=== PATIENT | female | born 1985 | race Caucasian/White ===

== ENCOUNTER 2019-12-06 05:22 | Inpatient (IN) ==
[2019-12-02 21:16] LABS: SARS CoV2 RNA (COVID-19) NOT DETECTED (NOT DETECTED)
--- NOTE | 2019-12-05 14:23 | Communication Note ---
Pt scheduled for on 12/06/19. Pt was tested at 38 weeks for Covid on 11/28/19 and was negative. Pt then attended a wedding on 11/30/19. Pt was seated next to a person with mild upper respiratory issues that did test positive for Covid on 12/02/19. Since patient is only 5-6 days post Covid exposure- viral load may not be high enough to detect with Covid testing. Therefore, it was decided that patient will be treated as a PUI during procedure and hospital admission. This decision was decided by Dr. Ross, the OB office and Infection Control. The [facility] was also involved in decision making. will take place in the main OR. No Cepheid or other Covid testing will be done preoperatively due to exposure being 5-6 days ago. Pt is currently under 14 day quarantine secondary to Covid exposure. She will be placed in negative pressure room during admission. The OB office has been informed of plan both for the and during hospital admission and is to inform/educate the patient of plan during hospital stay in which again she is considered a PUI patient. Dr. Jessica (anesthesiologist) for is aware of plan. Full PPE will need to be worn during procedure by all personnel.
--- NOTE | 2019-12-05 17:33 | History and Physical Report ---
DATE OF ADMISSION: 12/06/2019 PREOPERATIVE DIAGNOSES: 1. Intrauterine at 39 and 0/7 weeks. 2. Low-lying placenta within 1.8-1.9 cm of the cervical os. 3. Person under investigation for COVID exposure. HISTORY OF PRESENT ILLNESS: Billie is a 34-year-old white female, 1, para 0 who presents to labor and delivery for primary section for a low lying placenta. At her 20-week ultrasound, the patient was noted to have a posterior placenta 1.5 cm from the cervical os. At 32 weeks, the placenta was still noted to be approximately 1.5 cm from the os with increasing vascularity and at her 36-week scan, the placenta was 1.8-1.9 cm from the internal os. It was recommended that she have a primary section. The patient's up until the last week of her was uncomplicated. She did fail her 28-week glucose tolerance test, but passed her 2-hour glucose tolerance test. She is GBS negative. The patient had a negative COVID screen on 11/28/2019. She and her then attended an outdoor wedding where folks were not masked and the person that was sitting one person away from her at her dinner table was found to be COVID positive. The patient called the PAT and after many long conversations and consultation with the Department of Health, it was decided that she would be treated as a person under investigation for COVID regardless of test results, and her who was exposed as well would not be allowed to attend the patient in the hospital. The patient is allowed to have a support person with her who will be her mother who the patient has not seen since before 11/27 and does not look in her household. PAST OBSTETRIC AND GYNECOLOGIC HISTORY: As noted above. The patient has no history of sexually transmitted illnesses or abnormal Pap smears. ALLERGIES: No known drug allergies. MEDICATIONS: Include iron and vitamins. PAST MEDICAL HISTORY: The patient is healthy. Denies thyroid disease, asthma, heart disease, heart murmur, diabetes, kidney or liver problems. PAST SURGICAL HISTORY: Includes a laparoscopy with partial cystectomy of the right ovary. SOCIAL HISTORY: The patient denies tobacco, alcohol or drug use. Her spouse is Cain, but again, he will not be at the delivery. PHYSICAL EXAMINATION: GENERAL: This is a well-developed, well-nourished white female in no acute distress. Her weight is 144 pounds. VITAL SIGNS: Blood pressure 124/80. NECK: Supple without thyromegaly or lymphadenopathy. CHEST: Clear to auscultation bilaterally. CARDIOVASCULAR: Regular rate and rhythm. ABDOMEN: Soft, gravid and nontender. EXTREMITIES: Benign. LABORATORY DATA: Blood type O positive, antibody negative, rubella immune, RPR nonreactive, hepatitis B negative, HIV negative, chlamydia and gonorrhea negative, GBS negative. Declined CF, SMA and genetics. ASSESSMENT: Billie is a 34-year-old white female 1, para 0 with an intrauterine at 39 and 0/7 weeks and a low lying placenta within 1.8-1.9 cm from the cervical os posteriorly. We have recommended a delivery for this patient given the concern for bleeding with vaginal delivery. The patient is also a person who has been exposed to COVID and will be considered a person under investigation. The patient presents and the consent form is signed today. The risks of the surgery were reviewed including the risks of anesthesia, bleeding requiring transfusion, infection, poor wound healing, damage to surrounding structures including bowel, bladder, vessels, nerves and ureters with need for further surgery, hospitalization or intervention. The risk of any surgery including heart attack, blood clot, stroke or were discussed with the patient. Given this is a low lying placenta and the placenta is very vascular, we did discuss the potential increased risk for bleeding and need for transfusion. The patient is accepting of transfusion if indicated. The patient will be treated as a person under investigation for COVID. We will rapidly screen her on admission, but the result of that screen does not affect the decision of the hospital regarding this patient. She will be kept in negative pressure room with the baby, staffed per person under investigation, she will have video visiting. She will be allowed that visitor for the section, but then that visitor will have to go home. Questions were asked and answered to the best of my ability for the patient and the procedure is planned for the . addenedum for am 10/9--patient had a rapid COVID test this am which was positive. MICKY
[2019-12-06] MEDS ORDERED: LACTATED RINGER'S 1,000 ML IV SCH ×2 (05:45→10:00)
[2019-12-06] MEDS ORDERED: ceFAZolin 2000MG 2,000 MG/15 ML SYR IV STA (05:48)
[2019-12-06] MEDS ORDERED: CITRIC ACID/SODIUM CITRATE 15 ML UDC PO STA (05:48)
[2019-12-06 06:11] LABS: Basophils # (auto) 0.02 K/uL (0-0.2); Basophils % (auto) 0.3 %; Eosinophils # (auto) 0.01 K/uL (0-0.5); Eosinophils % (auto) 0.1 %; Hematocrit (blood only) 34.3 % (37-47); Hemoglobin 11.6 g/dL (12.0-16.0); Immature Granulocytes # (auto) 0.09 K/uL (0.00-0.02); Immature Granulocytes % (auto) 1.2 %; Lymphocytes # (auto) 2.12 K/uL (1.2-3.4); Lymphocytes % (auto) 28.5 %; Mean Corpuscular Volume 97.7 fL (80-100); Mean Platelet Volume 10.8 fL (7.4-10.4); Monocytes # (auto) 0.93 K/uL (0.11-0.59); Monocytes % (auto) 12.5 %; Neutrophils # (auto) 4.28 K/uL (1.4-6.5); Neutrophils % (auto) 57.4 %; Platelet Count 205 K/uL (130-400); RDW Coefficient of Variation 12.7 % (11.5-14.5); RDW Standard Deviation 44.9 fL (36.4-46.3); Red Blood Count 3.51 M/uL (4.2-5.4); White Blood Count 7.45 K/uL (4.8-10.8)
[2019-12-06 06:34] LABS: Mean Corpuscular Hgb Conc 33.8 g/dL (32-36)
--- NOTE | 2019-12-06 06:39 | Anesthesiology Consultation ---
Date of Service December 06, 2019 Assessment & Plan (1) Encounter for pre-operative examination: Chart Review Chart Review: Acceptable Risk for Surgery and Patient NOT seen in Pre Admission Testing Consults Requested none History Surgery Operation Date: 12/06/19 07:30 Proposed Procedures p Section in OR - Mary Ann Borjas MD, FACOG Height/Weight Height: 5 ft 4 in Weight: 65.317 kg Allergies Allergy/AdvReac Type Severity Reaction Status Date / Time No Known Allergies Allergy Verified 12/05/19 16:37 Medications Home Medications Medication Instructions Recorded Confirmed Last Taken prenat.vits,humera,qve-iqqa-girop 1 tab PO DAILY 07/01/19 12/05/19 Unknown ferrous sulfate [iron] 325 mg PO QAM 12/03/19 12/05/19 Unknown Active Medications Generic Name Dose Route Start Last Admin Trade Name Freq PRN Reason Stop Dose Admin Lactated Ringer's 1,000 mls @ 999 mls/hr 12/06/19 05:45 12/06/19 05:50 Lr IV 12/06/19 06:45 999 mls/hr .[id number] NANNETTE Administration NPO Date Last Intake of Fluids: 12/05/19 Time Last Intake of Fluids: 22:30 Date Last Intake of Solids: 12/05/19 Time Last Intake of Solids: 21:00 Past Medical History Medical History No known health problems Exercise / Class Metabolic Activity II 4-5 Yardwork/Stairs/Walk up hill Past Family History Family History Father Myocardial infarction Past Surgical History Surgical History H/O laparoscopy H/O partial cystectomy right ovary Past Anesthesia History No Hx of Anesthesia Complications and No Family Hx of Anesthesia Complications History of PONV No Hx of PONV and No Hx of Motion Sickness Social History Smoking Status: Never smoker Do You Dip or Chew Tobacco: No Hx Alcohol Use: No Hx Substance Use: No substance use type: does not use Physical Exam Vital Signs Last Vital Signs Temp 36.7 C 12/06/19 06:00 Testing Laboratory Results 12/06/19 05:51
[2019-12-06] MEDS ORDERED: MoRPHine SULFATE PF 1 MG/ML 10 ML AMP/VIAL INT SPINAL ONE (06:40)
[2019-12-06] MEDS ORDERED: MoRPHine SULFATE 2 MG/ML CARP IV PRN (06:40)
[2019-12-06] MEDS ORDERED: MEPERIDINE HCL 25 MG/ML CARP/VIAL IV PRN (06:40)
[2019-12-06] MEDS ORDERED: ePHEDrine sulfate 50 MG/ML AMP IV PRN (06:40)
[2019-12-06] MEDS ORDERED: ONDANSETRON INJ 2 MG/ML 2 ML VIAL IV PRN (06:40)
[2019-12-06] MEDS ORDERED: NALOXONE HCL 0.4 MG/1 ML VIAL/CARP IV PRN (06:40)
[2019-12-06] MEDS ORDERED: LACTATED RINGER'S 500 ML IV PRN (06:40)
[2019-12-06] MEDS ORDERED: NALOXONE HCL 1 MG in SODIUM CHLORIDE 0.9% 1000ML 1,000 ML IV PRN (06:40)
[2019-12-06] MEDS ORDERED: NALOXONE HCL 0.08 MG in SYRINGE 1.8 ML IV PRN (06:40)
[2019-12-06] MEDS ORDERED: SODIUM CHLORIDE 0.9% 1000ML 1,000 ML IV SCH (06:45)
[2019-12-06] MEDS ORDERED: DC INTRASPINAL MORPHINE SCH (06:45)
[2019-12-06] MEDS ORDERED: NO NARCOTICS OR SEDATIVES SCH (06:45)
[2019-12-06 06:52] LABS: Appearance Urine Clear (Clear); Bilirubin Urine Negative (Negative); Blood Urine Negative (Negative); Color Urine Yellow; Glucose Urine UA Negative (Negative); Ketones Urine 1+ (Negative); Leukocyte Esterase Urine Negative (Negative); Nitrite Urine Negative (Negative); Protein Urine Negative (Negative); Urobilinogen Urine Negative (Negative)
[2019-12-06] MEDS ORDERED: CARBOPROST TROMETHAMINE 250 MCG/ML AMPUL ONE (06:52)
[2019-12-06] MEDS ORDERED: METHYLERGONOVINE MALEATE 0.2 MG/ML AMP ONE (06:52)
[2019-12-06] MEDS ORDERED: ONDANSETRON INJ 2 MG/ML 2 ML VIAL ONE (07:13)
[2019-12-06] MEDS ORDERED: MoRPHine SULFATE PF 1 MG/ML 10 ML AMP/VIAL ONE (07:14)
[2019-12-06] MEDS ORDERED: fentaNYL citrate 100 MCG/2 ML VIAL ONE (07:14)
--- NOTE | 2019-12-06 07:19 | History & Physical Bridge Note ---
Date of Service December 06, 2019 History & Physical Bridge Note I have examined the patient, reviewed the History & Physical and in the interval since the performance of the History & Physical I have noted the following changes of clinical significance: Patient tested positive for COVID-19 this am per rapid test.
[2019-12-06] MEDS ORDERED: SUPERCREAM 0.870% 15 GM JAR EXT PRN (09:48)
[2019-12-06] MEDS ORDERED: DIPHTHERIA/TETANUS/PERTUSSIS 0.5 ML SYR/VIAL IM ONE (09:48)
[2019-12-06] MEDS ORDERED: BENZOCAINE 20% AER SPR 82.5 GM CAN EXT PRN (09:48)
[2019-12-06] MEDS ORDERED: SENNA 8.6 MG TAB PO PRN (09:48)
[2019-12-06] MEDS ORDERED: MAGNESIUM HYDROXIDE SUSP 30 ML UDC PO PRN (09:48)
[2019-12-06] MEDS ORDERED: HYDROCORTISONE ACETATE 25 MG SUPP PR PRN (09:48)
--- NOTE | 2019-12-06 09:57 | Post Operative Brief Note ---
PG Immediate Post Op with CF Date of Surgery December 06, 2019 Pre & Post Diagnosis Operation Date: 12/06/19 07:30 Preop dx-- at 39 0/7 weeks low lying placenta Postop dx--same <No data on this case meets the specified criteria> Operation Date: 12/06/19 08:00 <No data on this case meets the specified criteria> I identified the patient and participated in the time-out.: Yes Procedure Operation Date: 12/06/19 07:30 Primary low transverse placement of Bakri balloon in lower uterine segment/cervix <No data on this case meets the specified criteria> Operation Date: 12/06/19 08:00 <No data on this case meets the specified criteria> Surgeon Mary Ann Borjas MD, FACOG Plant Physiologist Dr. Lam Estimated Blood Loss 700 Findings Consistent with Post-Op Diagnosis viable male infant. apgars pending. nl utx/tubes/ovs noted placenta posterior in rossy. Fluids 1500cc Drains Other (Bakri balloon) Anesthesia Type L&D Only Epidural Exists Disposition Accompanied Patient To Recovery: Yes Disposition: L&D (negative pressure room on .)
--- NOTE | 2019-12-06 10:50 | Anesthesiology Progress Note ---
Date of Service December 06, 2019 Anesthesia Post Procedure Vital Signs Vital Signs: Temp 12/06/19 06:00 36.7 C Transfer of Care Handoff Completed per policy Notes Mental Status: alert / awake / arousable and participated in evaluation Patient Amnestic to Procedure: No Nausea / Vomiting: adequately controlled Pain: adequately controlled Airway Patency, RR, SpO2: stable & adequate BP & HR: stable & adequate Hydration State: stable & adequate Neuraxial Anesthesia: was administered and sensory block is resolving Anesthetic Complications: no major complications apparent and Pt Satisfied with anesthetic care
[2019-12-06 11:23] LABS: Base Excess Cord Arterial Bld -1.2 mEq/L (-9-1.8); Base Excess Cord Venous Blood -0.9 mEq/L (-7.7-1.9); CO2 Cord Arterial Blood 54 mmHg (39.1-73.5); Cord Venous Blood HCO3 26 mmol/L (18.4-26.8); Cord Venous Blood PCO2 52 mmHg (30.4-57.2); Cord Venous Blood PO2 20 mmHg (14.1-43.3); Cord Venous Blood pH 7.32 (7.20-7.44); HCO3 Cord Arterial Blood 26 mmol/L (19.7-28.5); PO2 Cord Arterial Blood 22 mmHg (4.1-31.7)
[2019-12-06 11:24] LABS: Oxygen Sat Cord Arterial Blood < 60.0 % (<60)
[2019-12-06 11:25] LABS: O2 Saturation Cord Venous Bld < 60.0 % (<68)
[2019-12-06] MEDS: KETOROLAC 30 MG/ML VIAL IV PRN ×3 (11:39→23:53)
--- NOTE | 2019-12-06 12:17 | Operative Report (OR) ---
DATE OF OPERATION: 12/06/2019 PREOPERATIVE DIAGNOSES: 1. Intrauterine at 39 and 0/7 weeks. 2. Posterior low lying placenta within 1.8 cm of the cervical os. POSTOPERATIVE DIAGNOSES: 1. Intrauterine at 39 and 0/7 weeks. 2. Posterior low lying placenta within 1.8 cm of the cervical os. 3. Lower uterine segment bleeding. PROCEDURES: 1. Primary lower transverse section. 2. Placement of Bakri balloon in lower uterine segment/cervix. SURGEON: Mary Ann Borjas MD. PRACTICE PHYSICIAN: Judith Thacker MD. ESTIMATED BLOOD LOSS: 700 mL. FLUIDS: 1500 mL. URINE OUTPUT: Clear yellow urine draining from the bladder at the end of the procedure, measured at 200 mL. INDICATIONS: Billie is a 1, para 0 with an intrauterine at 39 and 0/7 weeks who has a low lying placenta diagnosed on 20-week ultrasound that persisted in being low lying less than 2 cm from the os throughout the . Decision was made to proceed with primary section. FINDINGS: Viable male infant delivered from cephalic presentation with immediate cry. Apgars pending. Normal uterus, tubes, and ovaries were noted bilaterally. The uterine fundus clamped down very quickly and very firmly; however, there was bleeding from the posterior lower uterine segment and so the decision was made to place a Bakri balloon for tamponade. COMPLICATIONS: None. DRAINS: [place] and Bakri balloon. DISPOSITION: To recovery room in stable condition. DESCRIPTION OF PROCEDURE: The patient was taken to the operating room where she was identified verbally and by bracelet. She was seated on the operating table where spinal anesthetic was placed. She was then placed in dorsal lithotomy position in [facility] and prepped and draped in normal sterile fashion. Timeout was held, identifying correct patient, procedure, positioning, and preoperative antibiotic. There were no concerns. The anesthetic was tested and found to be adequate. A Pfannenstiel skin incision was made with the knife and taken down to the underlying layer of fascia with the knife. Bleeding was attended to with Bovie electrocautery. The fascia was nicked in the midline and taken out laterally with scissors. The superior edge of the fascial incision was grasped, elevated and the underlying layer of rectus muscle was taken off bluntly and with scissors. In a similar fashion, the inferior edge of the fascial incision was grasped, elevated and the underlying layer of rectus muscle was taken off bluntly and with scissors. The muscles were bluntly in the midline. The peritoneum was entered bluntly and stretched with the welding machine operator gas's hands. Bladder blade was placed. A bladder flap was created by grasping the vesicouterine peritoneum entering with scissors and taken out laterally with scissors. The bladder flap was created digitally. The bladder blade was replaced. Hysterotomy incision was scored with a knife and it was entered with a snap. Copious clear fluid was noted. The incision was then stretched, but needed to be cut with bandage scissors for more room. The welding machine operator gas's hand was then placed into the uterine incision and the infant was delivered atraumatically through this. There was no nuchal cord. The nose and mouth were bulb suctioned. The rest of the infant was then delivered without difficulty. The nose and mouth were again bulb suctioned. The cord was clamped and cut. The baby was crying on the field and was taken to the pediatricians for drying and attention. Cord blood and segment were obtained. The placenta was manually extracted. The uterus was exteriorized and cleared of all clot and debris with moistened laparotomy sponges. The lower uterine segment was found to be briskly bleeding, so the decision was made to place a Bakri balloon. The Bakri balloon was placed using the welding machine operator gas's hand through the vagina and pulled up through the uterine cervix into the lower uterine segment. The welding machine operator gas's gloves were then changed. Nursing then instilled 100 mL of water into this balloon until significantly less bleeding was noted. The hysterotomy incision was then repaired in 2 layers, the first in a running locked layer, the second in an imbricating layer of 0 Vicryl. One [id number]-[id number] suture of 0 Vicryl was needed for hemostasis. The posterior cul-de-sac was cleared of all clot and debris and irrigated. The uterus was anteriorized. The hysterotomy incision was again inspected and found to be hemostatic. The rectus muscles were reapproximated in the midline with several interrupted sutures of 0 Vicryl. The fascia was repaired with 0 Vicryl starting at the edges and meeting in the midline. The subcuticular tissue was irrigated. Bleeding was attended to with Bovie electrocautery and the skin was then closed with subcuticular stitch of 4-0 Vicryl. All sponge, lap and needle counts were correct x2. The patient tolerated the procedure well. At the end of the procedure, a vaginal exam was performed using a sterile glove and the balloon was still in the cervix/lower uterine segment. The patient was taken to her negative pressure recovery room on the 4th floor in stable condition. I attest to the content of the Intraoperative Record and any orders documented therein. Any exception s are noted below.
[2019-12-06] MEDS: OXYTOCIN 20 UNITS in LACTATED RINGER'S 1,000 ML IV SCH ×2 (13:21→21:07)
[2019-12-06] MEDS: SIMETHICONE 80 MG CHEW PO SCH ×3 (13:34→21:07)
[2019-12-06] MEDS: DOCUSATE SODIUM 100 MG CAP PO SCH (21:07)
[2019-12-06] MEDS: diphenhydrAMINE 50 MG/ML VIAL IV PRN (21:07)
[2019-12-06] MEDS: ceFAZolin 1000MG 1,000 MG/7.5 ML SYR IV SCH (23:57)
[2019-12-07] MEDS: diphenhydrAMINE 50 MG/ML VIAL IV PRN (04:00)
[2019-12-07] MEDS: KETOROLAC 30 MG/ML VIAL IV PRN (06:29)
[2019-12-07 06:45] LABS: Eosinophils # (auto) 0.01 K/uL (0-0.5); Eosinophils % (auto) 0.1 %; Hematocrit (blood only) 31.7 % (37-47); Hemoglobin 10.4 g/dL (12.0-16.0); Immature Granulocytes # (auto) 0.04 K/uL (0.00-0.02); Immature Granulocytes % (auto) 0.3 %; Lymphocytes % (auto) 13.1 %; Mean Corpuscular Hemoglobin 32.3 pg (25-34); Mean Corpuscular Hgb Conc 32.8 g/dL (32-36); Mean Corpuscular Volume 98.4 fL (80-100); Mean Platelet Volume 9.8 fL (7.4-10.4); Monocytes # (auto) 0.66 K/uL (0.11-0.59); Monocytes % (auto) 5.8 %; Neutrophils # (auto) 9.23 K/uL (1.4-6.5); Neutrophils % (auto) 80.7 %; Platelet Count 177 K/uL (130-400); RDW Coefficient of Variation 12.7 % (11.5-14.5); RDW Standard Deviation 45.4 fL (36.4-46.3); Red Blood Count 3.22 M/uL (4.2-5.4); White Blood Count 11.44 K/uL (4.8-10.8)
[2019-12-07] MEDS ORDERED: KETOROLAC 30 MG/ML VIAL IV PRN (06:45)
[2019-12-07] MEDS ORDERED: PROMETHAZINE HCL 25 MG in SODIUM CHLORIDE 0.9% 50 ML IV PRN (06:45)
[2019-12-07] MEDS ORDERED: diphenhydrAMINE Capsule 25 MG CAP PO PRN (06:45)
[2019-12-07] MEDS ORDERED: MEPERIDINE HCL 50 MG/ML CARP IV PRN (06:45)
[2019-12-07] MEDS ORDERED: ONDANSETRON INJ 2 MG/ML 2 ML VIAL IV PRN (06:45)
[2019-12-07] MEDS ORDERED: diphenhydrAMINE 50 MG/ML VIAL IV PRN (06:45)
[2019-12-07] MEDS: DOCUSATE SODIUM 100 MG CAP PO SCH ×2 (07:59→20:15)
[2019-12-07] MEDS: PRENATAL VITAMIN 1 TAB PO SCH (07:59)
[2019-12-07] MEDS: SIMETHICONE 80 MG CHEW PO SCH ×4 (07:59→20:16)
[2019-12-07] MEDS: ceFAZolin 1000MG 1,000 MG/7.5 ML SYR IV SCH (08:00)
--- NOTE | 2019-12-07 09:20 | Communication Note ---
Date of Service: December 07, 2019 30cc of water removed from Bakri. Tolerated well. Minimal blood noted in the bag. Patient notes some discomfort from her incision but otherwise feels well. Tolerated regular diet.
--- NOTE | 2019-12-07 09:28 | Obstetrical Progress Note ---
Date of Service December 07, 2019 Assessment & Plan (1) S/P : Continue routine care Bakri to be slowly deflated today by Dr. Borjas CBC stable from admit CBC COVID + - remain in negative pressure room with precautions Anticipate POD2 or POD3 discharge Day #:: 1 Subjective Ambulation: limited ambulation (not yet ambulated w/ melton in place) Voiding: melton catheter in place Passing Gas:: Yes Diet Tolerance:: nausea/vomiting Lochia:: Moderate (bakri in place w/ ~75cc in bag) Feeding Type:: bottle feeding Denies fevers, chills, n/v, RADER, CP, SOB Physical Exam Constitutional WD/WN, vitals as above Respiratory normal respiratory effort; no respiratory distress and no labored breathing Auscultation: lungs clear to auscultation bilaterally Cardiovascular RRR, no murmur, no edema Gastrointestinal (Abdomen) Inspection/Auscultation: + abdominal surgical incision (Dressing c/d/i); abdomen not distended Percussion/Palpation: abdomen soft; abdomen nontender Musculoskeletal No calf tenderness Results & Data ([facility]) Vital Signs (Past 12 Hours) Vital Signs Temp Pulse Resp BP Pulse Ox 12/07/19 07:45 98.8 F 90 18 107/53 L 96 12/07/19 05:45 18 96 12/07/19 04:45 16 95 12/07/19 03:45 18 97 12/07/19 03:05 98.6 F 84 18 108/58 L 97 12/07/19 02:45 18 98 12/07/19 01:45 18 95 12/07/19 00:45 20 96 12/06/19 23:41 98.4 F 88 20 112/62 100 12/06/19 23:40 20 100 12/06/19 22:20 20 98 Laboratory Results 12/07/19 12/06/19 12/06/19 Range/Units 06:00 08:46 08:46 WBC 11.44 H (4.8-10.8) K/uL RBC 3.22 L (4.2-5.4) M/uL Hgb 10.4 L (12.0-16.0) g/dL Hct 31.7 L (37-47) % MCV 98.4 (80-100) fL MCH 32.3 (25-34) pg MCHC 32.8 (32-36) g/dL RDW Std Deviation 45.4 (36.4-46.3) fL RDW Coeff of Renu 12.7 (11.5-14.5) % Plt Count 177 (130-400) K/uL MPV 9.8 (7.4-10.4) fL Immature Gran % (Auto) 0.3 % Neut % (Auto) 80.7 % Lymph % (Auto) 13.1 % [place] % (Auto) 5.8 % Eos % (Auto) 0.1 % Baso % (Auto) 0.0 % Neut # (Auto) 9.23 H (1.4-6.5) K/uL Lymph # (Auto) 1.50 (1.2-3.4) K/uL [place] # (Auto) 0.66 H (0.11-0.59) K/uL Eos # (Auto) 0.01 (0-0.5) K/uL Baso # (Auto) 0.00 (0-0.2) K/uL Immature Gran # (Auto) 0.04 H (0.00-0.02) K/uL Cord ABG pH 7.30 (7.1-7.38) Cord ABG pCO2 54 (39.1-73.5) mmHg Cord ABG pO2 22 (4.1-31.7) mmHg Cord ABG HCO3 26 (19.7-28.5) mmol/L Cord ABG Base Excess -1.2 (-9-1.8) mEq/L Cord ABG O2 Sat < 60.0 (<60) % Cord VBG pH 7.32 (7.20-7.44) Cord VBG pCO2 52 (30.4-57.2) mmHg Cord VBG pO2 20 (14.1-43.3) mmHg Cord VBG HCO3 26 (18.4-26.8) mmol/L Cord VBG Base Excess -0.9 (-7.7-1.9) mEq/L Cord VBG O2 Sat < 60.0 (<68) % Barometric Pressure 736.0 736.0 mm/Hg Blood Gas Comments ARMANDO ARMANDO
--- NOTE | 2019-12-07 11:37 | Communication Note ---
Date of Service: December 07, 2019 Patient doing well. Fluid removed and balloon removed without issue. A small clot came out after removal of balloon. Minimal bleeding. 50cc in melton connected to bakri. Plan to d/c catheter and ambulate later today. Questions answered.
[2019-12-07] MEDS: IBUPROFEN 600 MG TAB PO PRN ×3 (12:33→22:14)
[2019-12-07] MEDS: oxyCODONE/ACETAMINOPHEN 5mg/325mg TAB PO PRN ×3 (13:39→22:19)
[2019-12-07] MEDS: FERROUS SULFATE 325 MG TAB PO SCH (16:02)
[2019-12-07] MEDS ORDERED: bisacodyL 5 MG TABEC PO SCH (20:00)
[2019-12-08] MEDS: oxyCODONE/ACETAMINOPHEN 5mg/325mg TAB PO PRN ×5 (04:08→20:30)
[2019-12-08] MEDS: IBUPROFEN 600 MG TAB PO PRN ×5 (04:08→20:30)
[2019-12-08 06:39] LABS: Hematocrit (blood only) 28.6 % (37-47); Hemoglobin 9.2 g/dL (12.0-16.0)
[2019-12-08] MEDS: DOCUSATE SODIUM 100 MG CAP PO SCH ×2 (08:19→20:29)
[2019-12-08] MEDS ORDERED: bisacodyL 10 MG SUPP PR PRN (09:48)
--- NOTE | 2019-12-08 09:55 | Obstetrical Progress Note ---
Date of Service December 08, 2019 Assessment & Plan (1) S/P : Doing well. h/h stable. Asx from covid standpoint. Continue routine care. tested positive. Day #:: 2 Subjective Ambulation: ambulating normally Voiding: no voiding problems Passing Gas:: Yes Diet Tolerance:: regular diet Lochia:: Small Feeding Type:: bottle feeding Pain controlled. Physical Exam Constitutional WD/WN, vitals as above Respiratory normal respiratory effort, lungs clear to auscultation Cardiovascular RRR, no murmur, no edema Gastrointestinal (Abdomen) normal bowel sounds, soft, nontender, no hepatosplenomegaly ff/appro tender at u. incision c/d/i Psychiatric A+Ox3, euthymic affect Results & Data ([facility]) Vital Signs (Past 12 Hours) Vital Signs Temp Pulse Resp BP Pulse Ox 12/08/19 08:35 36.7 C 77 16 106/88 96 12/07/19 23:45 36.8 C 88 16 107/62 97
[2019-12-08] MEDS: FERROUS SULFATE 325 MG TAB PO SCH (10:12)
[2019-12-08] MEDS: SIMETHICONE 80 MG CHEW PO SCH ×4 (10:12→20:30)
[2019-12-08] MEDS: PRENATAL VITAMIN 1 TAB PO SCH (10:12)
[2019-12-09] MEDS: oxyCODONE/ACETAMINOPHEN 5mg/325mg TAB PO PRN ×4 (00:14→12:33)
[2019-12-09] MEDS: IBUPROFEN 600 MG TAB PO PRN ×4 (00:15→12:34)
--- NOTE | 2019-12-09 07:00 | Obstetrical Progress Note ---
Date of Service December 09, 2019 Assessment & Plan (1) S/P : Patient doing well. Plan d/c. Instructions given. Will f/u with telephone consult on . Discussed COVID that they should at least quarantine for 14 days from the event of exposure. They plan to quarantine for 10-14 days from leaving the hospital. If she has any symptoms, she is to call her pcp. Call us with any ob concerns. Day #:: 3 Subjective Ambulation: ambulating normally Voiding: no voiding problems Passing Gas:: Yes Diet Tolerance:: regular diet Lochia:: Small Feeding Type:: bottle feeding Pain controlled Physical Exam Constitutional WD/WN, vitals as above Respiratory normal respiratory effort, lungs clear to auscultation Cardiovascular RRR, no murmur, no edema Gastrointestinal (Abdomen) soft, nt, nd, incision--c/d/i, ff/nt at u Psychiatric A+Ox3, euthymic affect Results & Data ([facility]) Vital Signs (Past 12 Hours) Vital Signs Temp Pulse Resp BP Pulse Ox 12/09/19 04:22 36.7 C 79 16 100/63 95 12/09/19 00:15 36.7 C 85 16 109/72 96 12/08/19 20:28 36.7 C 90 18 102/66 95
[2019-12-09] MEDS: FERROUS SULFATE 325 MG TAB PO SCH (08:59)
[2019-12-09] MEDS: DOCUSATE SODIUM 100 MG CAP PO SCH (08:59)
[2019-12-09] MEDS: SIMETHICONE 80 MG CHEW PO SCH ×2 (08:59→12:33)
[2019-12-09] MEDS: PRENATAL VITAMIN 1 TAB PO SCH (08:59)
--- NOTE | 2019-12-11 14:54 | Discharge Summary (DS) ---
ADMISSION DIAGNOSES: 1. Intrauterine at 39 and 0/7 weeks. 2. Low lying placenta within 1.8 to 1.9 cm of the cervical os, posterior. 3. COVID positive history. DISCHARGE DIAGNOSES: Same. PROCEDURES: 1. Primary lower transverse section. 2. Placement of Bakri balloon. HISTORY OF PRESENT ILLNESS: Billie is a 34-year-old white female, 1, para 0 who presents to labor and delivery for primary section for low lying placenta. At her 20-week ultrasound the patient was noted to have a posterior placenta 1.5 cm from the cervical os. At 32 weeks the placenta was still noted to be approximately 1.5 cm from the os with increasing vascularity. At her 36-week scan the placenta was 1.8 to 1.9 cm from the internal os. It was recommended that she have a primary section. The patient's up until the last week of her was uncomplicated. She did fail her 20-week glucose tolerance test, but passed her 2-hour glucose tolerance test. Her GBS is negative. The patient had a negative COVID screen on 11/28/2019. She and her then attended an outdoor wedding where folks were not masked and the person that was sitting one person away from her at the dinner table was found to be COVID positive. The patient called the PAT and after many long conversations and consultation with the Department of Health it was decided that she would be treated as a person under investigation for COVID regardless of test results, and her , who was exposed as well, would not be allowed to attend to the patient in the hospital. It was determined that the patient would be allowed to have a support person with her who is not living in the house and has not been in contact with them since the wedding on 11/30/2019. The patient requested to have COVID testing on the morning of admission and this was performed and found to be positive. For the rest of patient's detailed history and physical, please see her history and physical. ASSESSMENT: Billie is a 34-year-old white female 1, para 0 with an intrauterine at 39 and 0/7 weeks and a low lying placenta that is 1.8 to 1.9 cm from the cervical os posteriorly. We have recommended delivery for this patient given the concern for bleeding with vaginal delivery. The patient is also COVID positive. HOSPITAL COURSE: Unfortunately, because of her positive COVID test she was not allowed a support person at the delivery. The patient underwent a primary low transverse section without significant difficulty. However, because of significant bleeding in the lower uterine segment/cervix posteriorly after removal of the placenta a Bakri balloon was placed in the lower uterine segment/cervix and inflated with 100 mL of sterile water. Estimated blood loss for the surgery was 700 mL. The patient's postoperative course was uncomplicated. The Bakri balloon was removed 24 hours after delivery without significant bleeding noted. She then began regular postoperative things. Her [place] was removed. She voided. She tolerated a regular diet. She ambulated in her negative pressure room without difficulty and her pain was well controlled on oral pain medications. The patient because of her COVID positive status was placed in a negative pressure room and appropriate contact precautions and PPE were used in the care of this patient. The baby stayed in the room with her and was never in the nursery. The patient remained afebrile and asymptomatic for COVID throughout her hospital stay and was discharged home on postoperative day #3. I will have a telephone visit with her from the office either Monday or Monday of this coming week and she was instructed if she had any signs or symptoms of COVID to contact us and her primary care doctor as soon as possible.
== END 2019-12-09 13:05 | disposition home or self-care (01) | DRG 786 ==
LOC: ASU 05:22 → 4W 05:23